=== PATIENT | female | born 1970 | race African-American/Black ===

== ENCOUNTER 2016-07-10 12:33 | Emergency (ER) | payer BC ==
--- NOTE | ~2016-07-10 | CR55 ---
[facility]. [facility] A Service of [facility] / [facility] RADIOLOGY TEXT RESULTS PATIENT: KUSUM CAREY LOCATION: SED : 72 UNIT #: [id number] AGE: [address]: Rochelle Le APRN SEX: F ORDER DR: [id number] [address] [address] [id number] E MR#: [id number] Acc #: [id number] NAME: KUSUM CAREY. : 1970 SEX: F STUDY DATE/TIME: 07/10/2016 12:34 UNIT: SED ROOM: STUDY DESCRIPTION: CR Calcaneus Min 2 Views Lt Attending Physician: Rochelle Le A.P.R.N. Ordering Physician: Rochelle Louis A.P.R.N. Primary Care Physician: Cuauhtemoc Valentino MEDICAL IMAGING REPORT This report is preliminary unless electronic signature is present. EXAM Left calcaneus 2 views INDICATIONS 46-year-old female with heel pain since yesterday. No comparisons. FINDINGS There is prominent calcaneal spurring along the insertion of the Achilles and the plantar fascia. No evidence for fracture. IMPRESSION Prominent calcaneal spurring. Otherwise unremarkable. No fracture. Dictated by... Nicholas Brown M.D. THIS IS AN ELECTRONICALLY VERIFIED REPORT Nicholas Brown M.D. at 07/11/2016 8:58 AM MOI/alberto TD: 07/10/2016 14:09 JOB #: [id number] MEDICAL IMAGING REPORT Page 1 of 1
[~2016-07-10 12:33] MED LIST: LORTAB 5/500 TA1 TA1 PO; NAPROSYN375 MG PO; NO MEDICATIONS; PHENERGAN25 MG PO; ROBAXIN500 MG PO; SKELAXIN PO; VICODIN PO; ZANTAC150 MG PO
== END 2016-07-10 13:27 | disposition home or self-care (01) ==
LOC: SED 12:33
DX: S90.32XA Contusion of left foot, initial encounter (principal); M77.32 Calcaneal spur, left foot; X58.XXXA Exposure to other specified factors, initial encounter; Y92.9 Unspecified place or not applicable
CPT/HCPCS: 73650; 99283